=== PATIENT | female | born 1955 | race Caucasian/White ===

== ENCOUNTER 2021-06-20 21:06 | Emergency (ER) | payer OTHER ==
[~2021-06-20] VITALS: Ht 162.6 cm; Wt 88.0 kg
== END 2021-06-20 23:05 | disposition home or self-care (01) ==
LOC: ER 21:06
DX: R09.81 Nasal congestion (principal); B34.9 Viral infection, unspecified; Z20.822 Contact with and (suspected) exposure to COVID-19

== ENCOUNTER 2023-04-20 12:17 | Emergency (ER) | payer OTHER ==
[~2023-04-20] VITALS: Ht 152.4 cm; Wt 87.5 kg
[2023-04-20] MEDS ORDERED: LOSARTAN POTASS25 MG PO (13:25)
[2023-04-20] MEDS ORDERED: ALLERGY RELIEF180 MG PO (13:25)
[2023-04-20] MEDS ORDERED: FLONASE16 GM NS (13:25)
[2023-04-20] MEDS ORDERED: SIMVASTATIN20 MG PO (13:25)
[2023-04-20] MEDS ORDERED: ZYNCOF 20-400120 ML PO (13:25)
[2023-04-20] MEDS ORDERED: CICLOPIROX15 GM PO (13:26)
[2023-04-20 17:13] LABS: HEMATOCRIT 42.2 % (36.0-45.00); HEMOGLOBIN 14.5 g/dL (12.0-15.00); MEAN CORPUSCULAR HEMOGLOBIN 30.5 pg (27.00-32.0); MEAN CORPUSCULAR HGB CONC 34.3 g/dl (32.0-36.0); PLATELET COUNT 293 K/uL (150-450); RED BLOOD COUNT 4.74 M/uL (4.00-6.00); RED CELL DISTRIBUTION WIDTH 14.3 % (11.5-14.5)
[2023-04-20 17:49] LABS: ALBUMIN 3.9 gm/dL (3.4-5.0); BILIRUBIN TOTAL 0.37 mg/dL (0.3-1.2); CALCIUM 9.7 mg/dL (8.5-10.1); CREATININE SERUM 0.75 mg/dL (0.55-1.02); GFR 77.08; GLOBULINA 3.8 G/DL (2.4-3.5); POTASSIUM 4.36 mEq/L (3.5-5.1); TOTAL PROTEIN 7.7 gm/dL (6.4-8.2)
[2023-04-20 18:04] LABS: URINE APPEARANCE Clear; URINE BILIRRUBIN Negative (NEGATIVE); URINE BLOOD Negative; URINE COLOR Yellow; URINE GLUCOSE Negative (NEGATIVE); URINE LEUKOCYTE Trace; URINE NITRATE Negative; URINE PROTEIN Negative (NEGATIVE); URINE UROBILINOGEN 0.2 E.U./dl
[2023-04-20 18:30] LABS: URINE BACTERIA 45.3 uL (0.0-1933); URINE EPITHELIAL CELLS 4.7 uL (0.0-38.8); URINE RBC 2.4 uL (0.0-20.8); URINE WBC 30.5 uL (0.0-23.2)
[2023-04-20] MEDS ORDERED: NORFLEX100MG PO (20:17)
[2023-04-20] MEDS ORDERED: DICLOFENAC SODI75 MG PO (20:17)
== END 2023-04-20 20:40 ==
LOC: ER 12:17
PROVIDERS: Nurse Practitioner Family
DX: R07.89 Other chest pain (principal); R10.9 Unspecified abdominal pain; I10 Essential (primary) hypertension; E78.49 Other hyperlipidemia
CPT/HCPCS: 36415; 96372; 99282; J1885; J2360